=== PATIENT | male | born 1990 | race Hispanic/Latino ===

== ENCOUNTER 2019-12-03 11:47 | Inpatient (IN) | payer OTHER ==
[2019-12-03 12:39] LABS: Bilirubin,Urine NEG (Negative); Blood,Urine LG (Negative); Color,Urine Amber (Yellow); Mucus,Urine 3+ /HPF
[2019-12-03 12:42] LABS: Creatine Kinase MB 14.3 ng/mL (0.0-4.0); Hemoglobin 14.3 gm/dl (11.8-15.2); Mean Corpuscular HGB Conc 34 % (32-34); Mean Corpuscular Volume 92 fl (84-94); Platelet Count 195 K/mm3 (140-440); Red Blood Count 4.57 M/mm3 (3.65-5.03); Red Cell Distribution Width 12.7 % (13.2-15.2)
[2019-12-03 12:43] LABS: Albumin 5.2 g/dL (3.9-5); Bilirubin,Direct 0.3 mg/dL (0-0.2); Calcium 9.6 mg/dL (8.4-10.2)
[2019-12-03 12:45] LABS: Cocaine Screen,Urine PRESUMPTIVE NEGATIVE; Methadone Screen,Urine PRESUMPTIVE NEGATIVE; Opiate Screen,Urine PRESUMPTIVE NEGATIVE
[2019-12-03 12:50] LABS: INR 1.29 (0.87-1.13)
[2019-12-03 12:51] LABS: Partial Thromboplastin Time 27.5 Sec. (24.2-36.6)
[2019-12-03 13:01] LABS: Amphetamine Screen,Urine PRESUMPTIVE POSITIVE; Benzodiazepines Screen,Urine PRESUMPTIVE POSITIVE; Cannabinoid Screen,Urine PRESUMPTIVE POSITIVE
[2019-12-03 13:29] LABS: ABG Base Excess -11.3 mmol/L (-2.0-3.0); ABG HCO3 13.1 mmol/L (20.0-26.0); ABG Methemoglobin 0.1 % (0.0-1.5); ABG Oxygen Saturation 97.9 % (95.0-99.0); ABG PH 7.322 pH Units (7.350-7.450); ABG PO2 108.7 mm Hg (80.0-90.0)
[2019-12-03 13:50] LABS: Band Neutrophils # (Manual) 1.4 K/mm3; Basophils % (Manual) 0 % (0.0-1.8); Eosinophils % (Manual) 0 % (0.0-4.3); Platelet Estimate Consistent w Auto; RBC Morphology Normal; Total Cells Counted 100
[2019-12-03 16:46] LABS: Creatinine,Urine 342.2 mg/dL (0.1-20.0); Protein/Creatinine Ratio,Urine 0.33
[2019-12-04 00:37] LABS: Hepatitis B Surface Antigen Non-Reactive (Negative); Hepatitis C Virus Antibody Non-Reactive (NonReactive)
[2019-12-04 05:52] LABS: Basophils % (Auto) 0.2 % (0.0-1.8); Eosinophils % (Auto) 0.1 % (0.0-4.3); Hematocrit 35.6 % (35.5-45.6); Hemoglobin 12.1 gm/dl (11.8-15.2); Lymphocytes # (Auto) 2.1 K/mm3 (1.2-5.4); Lymphocytes % (Auto) 25.1 % (13.4-35.0); Mean Corpuscular HGB Conc 34 % (32-34); Mean Corpuscular Volume 93 fl (84-94); Monocytes # (Auto) 0.7 K/mm3 (0.0-0.8); Monocytes % (Auto) 8.7 % (0.0-7.3); Platelet Count 147 K/mm3 (140-440); Red Blood Count 3.83 M/mm3 (3.65-5.03); Red Cell Distribution Width 12.7 % (13.2-15.2)
[2019-12-04 05:59] LABS: Alanine Aminotransferase 35 units/L (7-56); Albumin 3.9 g/dL (3.9-5); BUN/Creatinine Ratio 23; Blood Urea Nitrogen 25 mg/dL (9-20); Calcium 8.4 mg/dL (8.4-10.2); Hemolysis Index 3
[2019-12-05 15:08] LABS: Hematocrit 39.2 % (35.5-45.6); Hemoglobin 13.3 gm/dl (11.8-15.2); Mean Corpuscular HGB Conc 34 % (32-34); Mean Corpuscular Volume 93 fl (84-94); Platelet Count 137 K/mm3 (140-440); Red Cell Distribution Width 13.1 % (13.2-15.2)
[2019-12-05 15:22] LABS: BUN/Creatinine Ratio 8; Blood Urea Nitrogen 5 mg/dL (9-20); Calcium 9.1 mg/dL (8.4-10.2); Hemolysis Index 2
[2019-12-07 16:29] VITALS: BP 124/78
== END 2019-12-07 19:45 | disposition home or self-care (01) | DRG 917 ==
LOC: ED 11:47 → IMCU 16:29 → EDBD 16:29 → CC1 19:59 → 4A 12-04 18:15
PROVIDERS: ADMIT Internal Medicine; ATTEND Internal Medicine
PROC: 4A033R1 Measurement of Arterial Saturation, Peripheral, Percutaneous Approach (ICD-10-PCS; principal; 2019-12-03)
DX: T43.621A Poisoning by amphetamines, accidental (unintentional), initial encounter (principal); G93.41 Metabolic encephalopathy; N17.9 Acute kidney failure, unspecified; E87.0 Hyperosmolality and hypernatremia; E87.2 Acidosis; R65.10 Systemic inflammatory response syndrome (SIRS) of non-infectious origin without acute organ dysfunction; F11.20 Opioid dependence, uncomplicated; F31.30 Bipolar disorder, current episode depressed, mild or moderate severity, unspecified; R50.9 Fever, unspecified; E87.6 Hypokalemia; T79.6XXA Traumatic ischemia of muscle, initial encounter; X58.XXXA Exposure to other specified factors, initial encounter; R74.0 Nonspecific elevation of levels of transaminase and lactic acid dehydrogenase [LDH]; F19.94 Other psychoactive substance use, unspecified with psychoactive substance-induced mood disorder; Y92.89 Other specified places as the place of occurrence of the external cause
CPT/HCPCS: 36415; 70450; 71045; 72040; 76770; 80048; 80053; 80074; 80076; 80307; 80320; 81001; 82140; 82550; 82553; 82570; 82803; 83735; 84100; 84132; 84156; 84300; 84484; 85007; 85025; 85027; 85610; 85730; 87040; 87086; 93005; 99292; G0378; G0480; J0133; J0692; J0696; J1644; J2930; J3370; J3480; J7030; J7042; J7070